=== PATIENT | female | born 1985 | race Native Hawaiian/Other Pacific Islander ===

== ENCOUNTER 2017-01-31 01:09 | Emergency (ER) | payer OTHER ==
[~2017-01-31] VITALS: Ht 154.9 cm; Wt 58.1 kg
[~2017-01-31 01:09] MED LIST: NORCO 5-325 TA1 EACH PO; PEPCID20 MG PO; VITAMIN D5000 UNIT PO; XANAX0.5 MG PO; ZYRTEC10 MG PO
[2017-01-31] MEDS ORDERED: XULANE PATCH1 EACH TD (01:21)
[2017-01-31] MEDS ORDERED: EPIPEN 2-P0.3 MG/0.3 IM (03:29)
== END 2017-01-31 03:36 | disposition home or self-care (01) ==
LOC: ED 01:09
DX: L50.0 Allergic urticaria (principal); J45.909 Unspecified asthma, uncomplicated; Z88.0 Allergy status to penicillin; Z79.899 Other long term (current) drug therapy
CPT/HCPCS: 96361; 96372; 96374; 96375; 99284; J1200; J2930; J7030

== ENCOUNTER 2018-06-22 12:35 | Emergency (ER) | payer OTHER ==
[~2018-06-22] VITALS: Ht 154.9 cm; Wt 71.7 kg
[~2018-06-22 12:35] MED LIST changes: +ALPRAZOLAM0.5 MG PO; +EPIPEN 2-P0.3 MG/0.3 IM; +LISINOPRIL10 MG PO; +MAPAP325 MG PO; +METOPROLOL SUCC50 MG PO; +MOTRIN IB200 MG PO; +OXYCODON-ACETA1 EAC2 PO; +XULANE PATCH1 EACH TD
--- OUTSIDE RECORDS SUMMARY | 2018-06-22 12:40 | XMS ---
PreManage Notification: CHRISTIAN DANIELS Security Engine Repairer Events No recent Security Events currently on file CRITERIA MET - [facility] [place] - 2 Visits in 30 Days CARE PROVIDERS There are no care providers on record at this time. Jeanine has no Care Guidelines for this patient. [place] VISIT COUNT ([address] [facility] TOTAL 3 NOTE: Visits indicate total known visits. ED/C VISIT TRACKING (12 MO.) 06/22/2018 12:35 [facility] TYPE: Emergency COMPLAINT: - FLU LIKE SYMPTOMS 06/03/2018 12:28 [facility] TYPE: Emergency COMPLAINT: - VOLVULUS 05/24/2018 13:50 [facility] TYPE: Emergency COMPLAINT: - CHEST PAIN/ANXIETY DIAGNOSES: - Other termite inspector (current) drug therapy - Other chest pain - Essential (primary) hypertension - Chest pain, unspecified - Anxiety disorder, unspecified - Allergy status to penicillin INPATIENT VISIT TRACKING (12 MO.) 06/03/2018 19:32 [facility] TYPE: Medical [facility] COMPLAINT: - SP LAPAROTOMY, ACUTE SEROSITIS, SP APPY DIAGNOSES: - Other noninflammatory disorders of ovary, fallopian tube and broad ligament - Other termite inspector (current) drug therapy - Retention of urine, unspecified - Essential (primary) hypertension - Other termite inspector (current) drug therapy - Allergy status to penicillin - Essential (primary) hypertension - Retention of urine, unspecified - Other noninflammatory disorders of ovary, fallopian tube and broad ligament - Volvulus - Allergy status to penicillin - terminal worker (current) use of hormonal contraceptives - Other peritonitis - penitentiary (current) use of hormonal contraceptives - Other specified diseases of appendix - Other peritonitis - Other specified diseases of appendix [email or web address]
[2018-06-22] MEDS ORDERED: ULTRAM50 MG PO (16:51)
== END 2018-06-22 17:04 | disposition home or self-care (01) ==
LOC: ED 12:35
DX: K91.89 Other postprocedural complications and disorders of digestive system (principal); K59.00 Constipation, unspecified; Z88.0 Allergy status to penicillin; Z79.899 Other long term (current) drug therapy
CPT/HCPCS: 36415; 74177; 80053; 81001; 85025; 96361; 96374; 96375; 99284-25; J1885; J2405; J7030; Q9967

== ENCOUNTER 2019-06-20 08:31 | Emergency (ER) | payer BC ==
[~2019-06-20] VITALS: Ht 154.9 cm; Wt 69.8 kg
[~2019-06-20 08:31] MED LIST changes: +ULTRAM50 MG PO
[2019-06-20] MEDS ORDERED: LISINOPRIL-HCT1 EAC2 PO (08:54)
--- NOTE | 2019-06-20 13:18 | EKG ---
[facility] [address] [place], [place] [address] Signed Sinus tachycardia Otherwise normal ECG When compared with ECG of 24-MAY-2018 14:02, No significant change was found Confirmed by VIKY HERNANDEZ DO ([id number]) on 06/20/2019 1:18:09 PM Electronically Signed By: VIKY HERNANDEZ DO 06/20/19 1318 PATIENT NAME: CHRISTIAN DANIELS Electrocardiogram DATE OF : 83 PHYSICIAN: VIKY HERNANDEZ DO REPORT #: [id number] REPORT IS CONFIDENTIAL AND NOT TO BE RELEASED WITHOUT AUTHORIZATION
[2019-06-20] MEDS ORDERED: METOPROLOL TART25 MG PO (13:19)
[2019-06-20] MEDS ORDERED: MACROBID 100 M100 MG PO (13:19)
== END 2019-06-20 13:43 | disposition home or self-care (01) ==
LOC: ED 08:31
DX: E05.90 Thyrotoxicosis, unspecified without thyrotoxic crisis or storm (principal); R00.0 Tachycardia, unspecified; N39.0 Urinary tract infection, site not specified; Z88.0 Allergy status to penicillin; Z79.899 Other long term (current) drug therapy
CPT/HCPCS: 70450; 71260; 80053; 81001; 82550; 83519; 83880; 84436; 84443; 84445; 84480; 84481; 84484; 84703; 85025; 87088; 93005; 93010; 96374; 96375; 99284-25; J1200; J2405; J2765; J7030; Q9967

== ENCOUNTER 2020-11-23 13:15 | Emergency (ER) | payer BC ==
[~2020-11-23] VITALS: Ht 154.9 cm; Wt 70.3 kg
[~2020-11-23 13:15] MED LIST changes: +LISINOPRIL-HCT1 EAC2 PO; +MACROBID 100 M100 MG PO; +METOPROLOL TART25 MG PO
[2020-11-23] MEDS ORDERED: PROPRANOLOL HCL10 MG PO (13:44)
[2020-11-23] MEDS ORDERED: METHIMAZOLE10 MG PO (13:45)
[2020-11-23] MEDS ORDERED: ONDANSETRON ODT8 MG PO (16:31)
== END 2020-11-23 16:53 | disposition home or self-care (01) ==
LOC: ED 13:15
DX: A08.4 Viral intestinal infection, unspecified (principal); E05.90 Thyrotoxicosis, unspecified without thyrotoxic crisis or storm; I10 Essential (primary) hypertension; Z88.0 Allergy status to penicillin; Z79.899 Other long term (current) drug therapy
CPT/HCPCS: 36415; 80053; 81001; 84703; 85025; 96374; 99284-25; J2405; J7030